=== PATIENT | female | born 1990 | race Caucasian/White ===

== ENCOUNTER 2024-04-30 08:47 | Outpatient (AMB) | payer BC, SELFPAY ==
--- NOTE | 2024-04-30 09:05 | MHC.OFFVIS ---
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 States it was after an injury in June 2022. Went to orthopedics , had testing done. Injury was mostly tissue . In spring she was referred to occupational therapy. Was told to stop occupational therapy until she saw a vascular surgeon. 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 She states this initially started approximately 2 years ago with a crush injury, where she states her arm got pinned between her dog's leash and a doorway. She was ruled out for any fractures or dislocations and has followed up with Orthopedics as well as occupational therapy. She had an MRI performed in December of 2022 and it showed superficial thrombophlebitis. She states she continues with the pain and swelling, 2 years afterwards. She states she has had 3 OT sessions in the springtime of last year, but states they stopped due to the increased swelling that occurred. She denies any other injuries to the site. She has been using heat which she states increases the swelling. She states she was given compression sleeves by OT, she states when she wears them they do decrease the swelling in her arm feels better. She states the swelling and pain is located on the distal aspect of the right lower forearm towards her wrist and sometimes gets swelling into her hands. She denies any decrease in range of motion of the hand or arm. She is right-hand dominant and does perform a lot of computer tasks at work and then has some hobbies at home that includes crocheting and knitting. She denies any numbness or tingling in her hands or fingers. She denies any concerns with her left arm. Review of Systems Const Reports as per HPI and Denies weakness ENT Reports Normal hearing present and Denies dizziness Card Reports as per HPI, Denies chest pain, Denies chest pain at rest, Denies chest pain with activity, Denies dyspnea and Denies dyspnea on exertion Resp Reports as per HPI, Denies cough, Denies dyspnea and Denies dyspnea on exertion GI Reports as per HPI, Denies abdominal pain, Denies nausea and Denies vomiting Musc Denies numbness Skin/Breast Reports as per HPI, Denies erythema and Denies wounds Neuro Reports Normal hearing present, Denies dizziness, Denies numbness, Denies Sensory deficit (Neuro) and Denies weakness Psych Reports no additional complaints Endo Reports no additional complaints Physical Exam Const General: healthy appearing and no acute distress Orientation/consciousness: patient oriented x3 HEENT Head: Yes normal to inspection Ears: hearing grossly normal bilaterally Mouth: Normal oral and palatal mucosa present Resp Effort & Inspection: normal respiratory effort and able to speak in complete sentences Auscultation: clear to auscultation bilaterally Cardio Jugular venous distension: no JVD Rate: regular rate Rhythm: regular rhythm Heart sounds: S1 normal heart sound present and S2 normal heart sound present Bruits: no abdominal aortic bruits, no carotid bruits, no femoral bruits and no renal bruits Peripheral pulses: Peripheral pulses 2+ throughout GI Inspection: Yes normal to inspection Palpation (GI): No Abdominal aortic bruit present Skin General skin exam: no rashes or lesions noted Wounds: no wounds Hair: normal Neuro General: patient oriented x3 Cranial nerves: Yes Normal hearing present Cognition (Neuro): normal cognition Gait exam (Neuro): Normal gait present Motor exam (neuro): 5/5 motor strength present throughout Sensory Exam: No Sensory deficit (Neuro) Extrem Other: Right upper extremity: No swelling or redness noted in the area where the patient usually has concerns. Strong palpable radial pulses. Cap refill less than 2 seconds. General: Yes normal to inspection, Yes full ROM, Yes capillary refill normal and Yes normal gait Assessment & Plan Assessment & Plan (1) Thrombophlebitis arm: Code(s): I80.8 - Phlebitis and thrombophlebitis of other sites Category: Medical Plan: Tamera is presenting today on a referral from her PCP for ongoing right lower forearm pain and swelling, worsening over the last 2 years. She has been seen by Orthopedics as well as her PCP and occupational therapy. She states the swelling and pain worsens as the day goes on. She has been using compression sleeves, which have been helping. She states he has not helped at all and increases the swelling. She has not tried ice since the initial injury in June of 2022. We have ordered a right upper extremity duplex ultrasound to rule out any venous insufficiency/DVTs. There is a low likelihood this is a DVT. We discussed continuing with the compression sleeves including at work or when she is performing her hobbies at night. We discussed maybe switching to ice to see if that helps with the swelling as well. We discussed we will follow up with her once the ultrasound is completed. If there are any questions or concerns, please do not hesitate to reach out to us. Orders: Orders US venous duplex UE RT 1 Week I80.8 - Phlebitis and thrombophlebitis of other sites Coding Level of Care Code New Pt Level 4 (31756) Diagnoses Thrombophlebitis arm I80.8
== END 2024-04-30 09:38 | disposition home or self-care (01) ==
PROVIDERS: Visit Provider Physician Assistant Surgical
DX: I80.8 Phlebitis and thrombophlebitis of other sites (principal)
CPT/HCPCS: 99204

== ENCOUNTER 2024-06-08 08:17 | Outpatient (REF) | payer BC, SELFPAY ==
--- NOTE | ~2024-06-08 | US_ITS ---
EXAMINATION: US TRIPLEX UPPER EXTREMITY, RIGHT CLINICAL INFORMATION: Swelling, right upper extremity. COMPARISON: None available. TECHNIQUE: Color-flow triplex imaging with spectral analysis and compression Doppler was performed on the right upper extremity. FINDINGS: The right internal jugular, subclavian, and axillary veins are patent demonstrated normal phasic flow and compressibility. The imaged segment of the right brachiocephalic vein is patent. Spectral doppler waveforms are normal. The brachial, basilic, cephalic, radial, and ulnar veins are patent and compressible. US/US venous duplex UE RT IMPRESSION: No acute deep venous thrombosis involving the right upper extremity. Negative exam. Electronically signed by: Osbaldo Bonilla MD 06/08/2024 09:42 AM EST
== END 2024-06-08 08:18 | disposition home or self-care (01) ==
LOC: HO.US 08:17
PROVIDERS: PCP Registered Nurse; Visit Provider Physician Assistant Surgical
DX: I80.8 Phlebitis and thrombophlebitis of other sites (principal)
CPT/HCPCS: 93971

== ENCOUNTER → 2024-06-08 08:19 | Outpatient (BNV) | payer BC, SELFPAY | PROVIDERS: PCP Registered Nurse; Visit Provider Radiology Diagnostic Radiology | DX: R22.31 Localized swelling, mass and lump, right upper limb (principal) | CPT/HCPCS: 93971 ==

== ENCOUNTER 2024-06-11 10:52 | Outpatient (AMB) | payer BC, SELFPAY ==
--- NOTE | 2024-06-11 11:01 | MHC.OFFVIS ---
Intake Visit Reasons: follow up s/p US 06/08/24 Intake Note: Patient presents for US follow up. Patient has no complaints. Accompanied by: Self / Same As Patient Allergies azithromycin Allergy (Unknown, Verified 06/11/24 11:02) Unknown nitrofurantoin Allergy (Unknown, Verified 06/11/24 11:02) Unknown Penicillins Allergy (Unknown, Verified 06/11/24 11:02) Unknown HPI HPI follow up s/p 06/08/24: Details: Tamera is presenting today as a follow up to arterial duplex ultrasound of the right upper extremity, performed on 06/08/2024. She continues with intermittent pain of the right wrist area, but states it has not worsened. She initially had a crush injury approximately 2 years ago and has been seen by Orthopedics as well as PT and OT. She was referred to us for rule out a DVT prior to obtaining more PT/OT services. Review of Systems Const Reports as per HPI and Denies weakness ENT Reports Normal hearing present and Denies dizziness Card Reports as per HPI, Denies chest pain, Denies chest pain at rest, Denies chest pain with activity, Denies dyspnea and Denies dyspnea on exertion Resp Reports as per HPI, Denies cough, Denies dyspnea and Denies dyspnea on exertion GI Reports as per HPI, Denies abdominal pain, Denies nausea and Denies vomiting Musc Denies numbness Skin/Breast Reports as per HPI, Denies erythema and Denies wounds Neuro Reports Normal hearing present, Denies dizziness, Denies numbness, Denies Sensory deficit (Neuro) and Denies weakness Psych Reports no additional complaints Endo Reports no additional complaints Physical Exam Const General: healthy appearing and no acute distress Orientation/consciousness: patient oriented x3 HEENT Head: Yes normal to inspection Ears: hearing grossly normal bilaterally Mouth: Normal oral and palatal mucosa present Resp Effort & Inspection: normal respiratory effort and able to speak in complete sentences Auscultation: clear to auscultation bilaterally Cardio Jugular venous distension: no JVD Rate: regular rate Rhythm: regular rhythm Heart sounds: S1 normal heart sound present and S2 normal heart sound present Bruits: no abdominal aortic bruits, no carotid bruits, no femoral bruits and no renal bruits Peripheral pulses: Peripheral pulses 2+ throughout GI Inspection: Yes normal to inspection Palpation (GI): No Abdominal aortic bruit present Skin General skin exam: no rashes or lesions noted Wounds: no wounds Hair: normal Neuro General: patient oriented x3 Cranial nerves: Yes Normal hearing present Cognition (Neuro): normal cognition Gait exam (Neuro): Normal gait present Motor exam (neuro): 5/5 motor strength present throughout Sensory Exam: No Sensory deficit (Neuro) Extrem Other: Right upper extremity: No swelling or redness noted in the area where the patient has concerns. Strong palpable radial pulses. Cap refill less than 2 seconds. General: Yes normal to inspection, Yes full ROM, Yes capillary refill normal and Yes normal gait Results Reviewed Results Reviewed: Arterial duplex of the right upper extremity: Impression: no acute DVT involving the right upper extremity. Negative exam. Assessment & Plan Assessment & Plan (1) Thrombophlebitis arm: Code(s): I80.8 - Phlebitis and thrombophlebitis of other sites Category: Medical Plan: Tamera is presenting today on a follow up to right upper extremity duplex ultrasound, performed on 06/08/2024. The ultrasound was negative for any DVT. The patient continues to endorse pain in the area of the wrist/initial injury from 2 years ago. She states that the pain continues to worsen as the day progresses. We discussed continuing with compression sleeves, especially at night or when performing her hobbies. We discussed NSAIDs and ice/heat, depending on which of her makes it feel better. We discussed following up with her PCP for further evaluation. We discussed that she can continue with PT/OT as she would like and if it helps with the pain. We discussed that we will not need to follow up with her unless she has any other vascular concerns. Thank you for allowing us to participate in the patient's care. If there are any questions or concerns, please do not hesitate to reach out to us. Coding Level of Care Code Est Pt Level 4 (85040) Diagnoses Thrombophlebitis arm I80.8 Comment Review of arterial ultrasound
== END 2024-06-11 11:08 | disposition home or self-care (01) ==
PROVIDERS: PCP Registered Nurse; Visit Provider Physician Assistant Surgical
DX: I80.8 Phlebitis and thrombophlebitis of other sites (principal)
CPT/HCPCS: 99214